=== PATIENT | male | born 1950 | race Caucasian/White ===

== ENCOUNTER 2021-11-12 11:53 | Emergency (ER) | payer MEDICAID, MEDICARE, SELFPAY ==
[~2021-11-12] VITALS: Ht 172.7 cm; Wt 81.8 kg
[2021-11-12] MEDS ORDERED: NS 500 ML IV ONE (12:15)
[2021-11-12] MEDS ORDERED: ACETAMINOPHEN TAB 650MG DOSE (2X325MG) PO ONE (12:15)
[2021-11-12 12:37] LABS: BASO % 0.2 % (0.0-1.0); EOS % 0.2 % (0.0-3.0); HEMATOCRIT 44.6 % (42.0-52.0); HEMOGLOBIN 14.6 g/dl (13.5-17.5); LYMPH # 0.5 10^3/uL (1.5-5.0); LYMPH % 3.9 % (24.0-44.0); MEAN CORPUSCULAR HEMOGLOBIN 30.2 pg (27.0-33.0); MEAN CORPUSCULAR HGB CONC 32.7 g/dl (32.0-36.5); MEAN CORPUSCULAR VOLUME 92.3 fl (80.0-96.0); MONO # 1.2 10^3/uL (0.0-0.8); NEUTROPHILS # 11.6 10^3/uL (1.5-8.5); NEUTROPHILS % 86.3 % (36.0-66.0); PLATELET COUNT, AUTOMATED 212 10^3/uL (150-450); RED BLOOD COUNT 4.83 10^6/uL (4.30-6.10); WHITE BLOOD COUNT 13.4 10^3/uL (4.0-10.0)
[2021-11-12 13:17] LABS: ALBUMIN 3.8 GM/DL (3.2-5.2); ALT/SGPT 48 U/L (12-78); BILIRUBIN,DIRECT 0.2 MG/DL (0.0-0.2); BILIRUBIN,TOTAL 0.9 MG/DL (0.2-1.0); BLOOD UREA NITROGEN 13 MG/DL (7-18); CARBON DIOXIDE LEVEL 27 MEQ/L (21-32); CHLORIDE LEVEL 106 MEQ/L (98-107); CREATININE FOR GFR 1.05 MG/DL (0.70-1.30); GLOMERULAR FILTRATION RATE > 60.0 (>42); GLUCOSE, FASTING 135 MG/DL (70-100); NT-PRO BNP 189 PG/ML (<125); POTASSIUM SERUM 3.8 MEQ/L (3.5-5.1); SODIUM LEVEL 140 MEQ/L (136-145); THYROID STIMULATING HORMONE 0.591 uIU/ML (0.358-3.740); TOTAL PROTEIN 6.3 GM/DL (6.4-8.2)
[2021-11-12 13:45] VITALS: O2SAT 92
[2021-11-12] MEDS ORDERED: ISOVUE-370 76% 100ML VIAL As Ordered ONE (13:47)
[2021-11-12] MEDS ORDERED: SYNT50TA PO (15:26)
[2021-11-12] MEDS ORDERED: EZET10TA21 PO (15:26)
[2021-11-12] MEDS ORDERED: ROSU40TA4 PO (15:26)
[2021-11-12] MEDS ORDERED: COQ1200C3 PO (15:26)
[2021-11-12] MEDS ORDERED: VITA100093 PO (15:26)
[2021-11-12] MEDS ORDERED: HOME MED LIST COMPLETE! XX SCH (15:40)
[2021-11-12] MEDS ORDERED: NIRMATRELVIR/RITONAVIR CO-PACK (EMERGENCY USE AUTH) PO SCH ×2 (16:00→21:00)
[2021-11-12 16:03] VITALS: BP 140/62
== END 2021-11-12 16:30 | disposition home or self-care (01) ==
LOC: M ED 11:53
DX: U07.1 COVID-19 (principal); R00.0 Tachycardia, unspecified; K44.9 Diaphragmatic hernia without obstruction or gangrene
CPT/HCPCS: 71045; 71275; 80048; 80076; 83605; 83880; 84443; 84484; 85025; 87040; 87486; 87581; 87633; 87798; 93005; 93041; 94760; 96360; 99285; Q9967

== ENCOUNTER 2023-10-19 15:07 | Emergency (ER) | payer MEDICARE, OTHER ==
[~2023-10-19] VITALS: Ht 172.7 cm; Wt 77.1 kg
[~2023-10-19 15:07] MED LIST: COQ1200C3 PO; EZET10TA21 PO; ROSU40TA81 PO; SYNT50TA PO; VITA100093 PO
[2023-10-19 17:09] VITALS: BP 142/77; TEMP 97.1; O2SAT 95
== END 2023-10-19 17:10 | disposition home or self-care (01) ==
LOC: M ED 15:07
DX: S63.92XA Sprain of unspecified part of left wrist and hand, initial encounter (principal); W01.0XXA Fall on same level from slipping, tripping and stumbling without subsequent striking against object, initial encounter; E78.5 Hyperlipidemia, unspecified; E03.9 Hypothyroidism, unspecified; Z79.899 Other long term (current) drug therapy; Y92.9 Unspecified place or not applicable; Y93.89 Activity, other specified; Y99.9 Unspecified external cause status

== ENCOUNTER → 2023-11-04 | Outpatient (CLI) | payer MEDICARE, OTHER | LOC: M SOG 14:44 | PROVIDERS: ATTEND Physician Assistant | DX: M25.532 Pain in left wrist (principal) ==

== ENCOUNTER → 2024-02-25 | Outpatient (CLI) | payer MEDICARE, SELFPAY ==
[~2024-02-25] MED LIST changes: +ISOVUE-300 61% 100ML VIAL As Ordered ONE; +LIDOCAINE 1% MDV 20ML VIAL As Ordered ONE; +PROHANCE 279.3MG/ML 5ML VIAL As Ordered ONE
== END ==
LOC: M RAD 11:46
PROVIDERS: ATTEND Physician Assistant
DX: S63.502D Unspecified sprain of left wrist, subsequent encounter (principal); M25.532 Pain in left wrist
CPT/HCPCS: 25246; 73223; 77002; A9576; Q9967

== ENCOUNTER 2024-04-24 07:51 | Day surgery (SDC) | payer OTHER ==
[~2024-04-24] VITALS: Ht 174 cm; Wt 82.2 kg
[~2024-04-24 07:51] MED LIST changes: +B-12100010 PO; +FENO48TA8 PO; -ISOVUE-300 61% 100ML VIAL As Ordered ONE; +JARD1TAB3 PO; -LIDOCAINE 1% MDV 20ML VIAL As Ordered ONE; +LIDOCAINE 2% 100MG/5ML SDV (FOR ANES.) As Ordered ONE; +ONDANSETRON 4MG 2ML VIAL As Ordered ONE; +PHENYLephrine 500MCG 5ML (100MCG/ML) SYRINGE As Ordered ONE; -PROHANCE 279.3MG/ML 5ML VIAL As Ordered ONE; +ROCURONIUM BROMIDE 50MG/5ML VIAL As Ordered ONE; +ePHEDrine SULFATE 25 MG/5 ML(5MG/ML) SYRINGE As Ordered ONE; +fentaNYL 100 MCG/2 ML INJECTION As Ordered ONE; +propofoL 200 MG/20 ML VIAL As Ordered ONE
[2024-04-24] MEDS: ceFAZolin 2 GM/D5W 50 ML IV BAG As Ordered ONE (09:28)
[2024-04-24] MEDS ORDERED: ACETAMINOPHEN 1000MG/100ML IV BAG As Ordered ONE (09:33)
[2024-04-24] MEDS: BACITRACIN OINTMENT 30GM TUBE As Ordered ONE (09:56)
[2024-04-24] MEDS ORDERED: LR 1,000 ML IV SCH (10:05)
[2024-04-24] MEDS ORDERED: fentaNYL 100 MCG/2 ML INJECTION IV PRN (10:05)
[2024-04-24] MEDS ORDERED: oxyCODONE 5MG TAB PO PRN (10:05)
[2024-04-24] MEDS ORDERED: ONDANSETRON 4MG 2ML VIAL IV PRN (10:05)
[2024-04-24] MEDS ORDERED: HYDROMORPHONE HCL 0.5 MG/ 0.5 ML SYRINGE IV PRN (10:05)
[2024-04-24 10:33] LABS: SOURCE, BODY FLUID LT WRIST; SYNOVIAL FLUID COLOR PALE YELLOW (COLORLESS)
[2024-04-24 11:35] VITALS: BP 151/72; TEMP 97.1; O2SAT 96
== END 2024-04-24 11:36 | disposition home or self-care (01) ==
LOC: M SDC 07:51
PROVIDERS: ATTEND Orthopaedic Surgery Hand Surgery
DX: M65.98 Unspecified synovitis and tenosynovitis, other site (principal); E03.9 Hypothyroidism, unspecified; E11.9 Type 2 diabetes mellitus without complications; E78.00 Pure hypercholesterolemia, unspecified; Z79.899 Other long term (current) drug therapy; Z79.890 Hormone replacement therapy; Z87.891 Personal history of nicotine dependence; Z79.84 Long term (current) use of oral hypoglycemic drugs
CPT/HCPCS: 25116; J0131; J0665; J0690; J1100; J2371; J2405; J3010